=== PATIENT | female | born 1950 | race Caucasian/White ===

== ENCOUNTER 2018-04-22 10:01 | Emergency (ER) | payer OTHER, MEDICARE ==
[~2018-04-22] VITALS: Ht 152.4 cm; Wt 95.3 kg
[2018-04-22 11:46] VITALS: BP 110/74
[2018-04-22] MEDS ORDERED: VITAMIN D2000 UNIT PO (12:19)
[2018-04-22] MEDS ORDERED: ZOLOFT50 M1 PO (12:19)
--- NOTE | 2018-04-22 13:33 | ED UPPER/LOWER EXTREMITY COMPL ---
History of Present Illness General Chief Complaint: Lower Extremity Problems Stated Complaint: LEFT KNEE PAIN, SWOLLEN Source: patient Exam Limitations: no limitations Vital Signs & Intake/Output Vital Signs & Intake/Output Vital Signs Date Time Temp Pulse Resp B/P B/P Pulse O2 O2 Flow FiO2 Mean Ox Delivery Rate 04/22 1146 97.6 79 18 110/74 97 Room Air 04/22 1007 97.8 90 20 158/80 97 Room Air Allergies Coded Allergies: Penicillins (RASH, PER PT UNSURE 04/22/18) Reconcile Medications Cholecalciferol (Vitamin D3) (Vitamin D) (Unknown Strength) CAPSULE (Unknown Dose) PO DAILY SUPPLEMENT (Reported) Sertraline HCl (Zoloft) 50 MG TABLET 1 TAB PO DAILY MENTAL HEALTH (Reported) Triage Note: STATES SHE FELL ON HER KNEES 2 WEEKS AGO D/T MISSTEP. STATES HER LEFT KNEE IS SWOLLEN AND BRUISED AND HASN'T HEALED. 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 yes Onset: Gradual Duration: changing over time, continues in ED Timing: no prior history Severity: mild Pain/Injury Location: Left: Knee. Method of Injury: fall No Modifying Factors: none HPI: 68-year-old female presented to the emergency department reporting about 2 months ago she had fallen on both knees onto concrete. She is uncertain when she had tripped over. She states that over time her knee pain began to heal, however her left knee began to swell. She states most pain right at the tip of the left knee. She has tried taking ibuprofen and Tylenol with minimal relief. She denies any head trauma or other trauma at the time she fell. She denies any significant medical history. (Jaqui Lozada) Past History Travel History Traveled to [place] past 21 day No Medical History Any Pertinent Medical History? see below for history Psychiatric: depression Surgical History Surgical History: non-contributory Psychosocial History What is your primary language Romanian Tobacco Use: Current Daily Use Daily Tobacco Use Amount/Type: => 5 Cigarettes daily ETOH Use: occasional use Illicit Drug Use: denies illicit drug use Family History Hx Contributory? No (Jaqui Lozada) Review of Systems Review of Systems Constitutional: Reports: no symptoms. EENTM: Reports: no symptoms. Respiratory: Reports: no symptoms. Cardiovascular: Reports: no symptoms. Gastrointestinal/Abdominal: Reports: no symptoms. Genitourinary: Reports: no symptoms. Musculoskeletal: Reports: see HPI. Skin: Reports: no symptoms. Neurological/Psychological: Reports: no symptoms. Hematologic/Endocrine: Reports: no symptoms. Immunological: Reports: no symptoms. All Other Systems: Reviewed and Negative (Jaqui Lozada) Physical Exam Physical Exam General Appearance: well developed/nourished, no apparent distress, alert, awake , comfortable Head: atraumatic, normal appearance Eyes: Bilateral: normal appearance. Ears, Nose, Throat: hearing grossly normal Neck: normal inspection, full range of motion Back: normal inspection, normal range of motion Leg Left: normal range of motion, normal inspection Leg Right: normal range of motion, normal inspection Knee Left: normal range of motion (mild), swelling (peripatellar), tenderness ( pinpoint tender over patella), joint effusion Knee Right: normal range of motion, normal inspection, no joint effusion or point tenderness Foot Left: normal inspection, normal range of motion Foot Right: normal inspection, normal range of motion Neurologic/Tendon: normal sensation, normal motor functions, normal tendon functions, responds to pain, no evidence tendon injury, no pulse deficit Skin: intact, normal color, warm/dry Diagram Legs Front/Back 1) (Jaqui Lozada) Progress Differential Diagnosis: contusion, dislocation, fracture, sprain Plan of Care: 68 year old female with left knee pain and mild joint effusion d/t fall 2 months ago onto concrete. Patient has been ambulating with slight limp protecting her left knee. Xray unremarkable. Offered to immobilize knee with penny bandage or knee immobilizer however pt declined. She also declined using crutches. She was advised fall precautions. She was advised to follow up outpatient with [facility] traffic [facility] specialist on Tuesday for further management. She was advised to keep left knee immobilized and allowed to rest. Tylenol/ibuprofen for pain as needed. Pt offered rx however she declined. She was stable at time of discharge. Diagnostic Imaging: Viewed by Me: Radiology Read. Discussed w/RAD: Radiology Read. Radiology Impression: PATIENT: ANSHUL GALVAN PRESENT AGE: 68 PATIENT ACCOUNT NO: [id number] : 51 LOCATION: [facility] ORDERING PHYSICIAN: Jaqui FARRAR SERVICE DATE: 04/22/18 EXAM TYPE: RAD - XRY- KNEE COMPLETE LEFT EXAMINATION: XR KNEE, LEFT CLINICAL INFORMATION: Left knee pain after trauma. COMPARISON: None TECHNIQUE: Four views of the left knee. FINDINGS: Alignment is normal. No acute fracture, subluxation or joint effusion. Mild osteophyte formation at the patellofemoral and medial tibiofemoral compartments. Soft tissue edema/swelling in the prepatellar region. Correlate for bruising in this area. Note that prepatellar bursitis could also produce soft tissue swelling in this region. IMPRESSION: 1. No acute fracture or malalignment. 2. 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 3. Soft tissue swelling/edema in the prepatellar region. DICTATED BY: Calin Moon MD DATE/TIME DICTATED:04/22/181325 BANK CONSULTANT:GERMAN DATE/TIME TRANSCRIBED:04/22/181325 CONFIDENTIAL, DO NOT COPY WITHOUT APPROPRIATE AUTHORIZATION. <Electronically signed in Other Vendor System> SIGNED BY: Calin Moon MD 04/22/18 1331 (Jaqui Lozada) Departure Departure Disposition: HOME OR SELF CARE Condition: Stable Clinical Impression Primary Impression: Knee joint pain Qualifiers: Laterality: left Qualified Code: M25.562 - Pain in left knee Secondary Impressions: Effusion of knee Qualifiers: Laterality: left Qualified Code: M25.462 - Effusion, left knee Referrals: Marques CELESTE,J. J (PCP/Family) TED MILLIGAN MD Additional Instructions: Please take ibuprofen or Tylenol as needed for pain. Follow-up with [facility] [employer] specialist, call on Tuesday for appointment. Try to keep me as immobile as possible. return to the emergency department with any new or worsening symptoms. Departure Forms: Customer Survey General Discharge Information (Jaqui Lozada) PA/SHEEP CLIPPER Co-Sign Statement Statement: ED Attending supervision documentation- I saw and evaluated the patient. I have also reviewed all the pertinent lab results and diagnostic results. I agree with the findings and the plan of care as documented in the PA's/SHEEP CLIPPER's documentation. x I have reviewed the ED Record and agree with the PA's/SHEEP CLIPPER's documentation. [] Additions or exceptions (if any) to the PAs/SHEEP CLIPPER's note and plan are summarized below: [] (Lita CELESTE,Hunter)
== END 2018-04-22 13:55 ==
LOC: ERH 10:01
DX: M25.562 Pain in left knee (principal); M25.462 Effusion, left knee
CPT/HCPCS: 73562-LT